=== PATIENT | male | born 1950 | race Caucasian/White ===

== ENCOUNTER 2016-08-23 05:28 | Inpatient (IN) | payer OTHER, MEDICARE ==
[2016-08-10 08:44] VITALS: BMI 33.0
--- NOTE | 2016-08-10 09:13 | PAT Medication Instructions ---
Service Date Aug 10, 2016. Current Home Medication List Diazepam (Valium), 2 MG PO UD PRN for prn Famotidine (Pepcid), 20 MG PO DAILY PRN for Indigestion Ibuprofen (Advil), 400-600 MG PO Q6H PRN for Pain Medication Instructions For Your Scheduled Surgery - Take the following medications the morning of surgery with a sip of water OTHERWISE NOTHING TO EAT OR DRINK AFTER MIDNIGHT: Diazepam (Valium), 2 MG PO DIRECTED (as needed) Famotidine (Pepcid), 20 MG PO DAILY DIRECTED (as needed) If you have any questions please call us at [phone] (Ila Wilkes PA-C ) or [phone] or [phone]
[2016-08-10 10:01] LABS: BASO % 0.3 %; BASO ABS # 0.02 K/uL (0-0.2); COMPLETE YES; HEMATOCRIT 46.7 % (42-52); IG% 0.3 %; LYMPH % 22.5 %; LYMPH ABS # 1.48 K/uL (1.2-3.4); MEAN CELL VOLUME 82.5 fL (80-100); MEAN CORPUSCULAR HEMOGLOBIN 28.1 pg (25-34); MEAN PLATELET VOLUME 10.5 fL (7.4-10.4); MONO % 7.4 %; NEUT % 67.5 %; PLATELET COUNT 191 K/uL (130-400); RED BLOOD COUNT 5.66 M/uL (4.7-6.1); WHITE BLOOD COUNT 6.59 K/uL (4.8-10.8)
[2016-08-10 10:11] LABS: PROTHROMBIN TIME (PATIENT) 10.3 SECONDS (9.0-12.0)
--- NOTE | 2016-08-10 10:21 | DIAGNOSTIC IMAGING REPORT ---
CHEST PREADMISSION(PA/LAT) CLINICAL HISTORY: Preoperative chest COMPARISON STUDY: 09/02/2012 FINDINGS: The cardiac and mediastinal contours are normal. There is no evidence of focal pulmonary consolidation. There is no evidence of failure. No pleural effusions are visualized.[ A triangular opacity in the right infrahilar region is felt to reflect a summation. IMPRESSION: No active disease in the chest. Electronically signed by: Rokc Salinas M.D. 08/10/2016 10:20 AM Dictated Date/Time: 08/10/2016 10:19 AM
[2016-08-10 10:30] LABS: BUN/CREATININE RATIO 15.9 (10-20); CALCIUM 9.4 mg/dl (8.5-10.1); CREATININE 1.1 mg/dl (0.60-1.40); POTASSIUM 4.8 mmol/L (3.5-5.1)
[2016-08-20 16:30] VITALS: BMI 33.0
--- NOTE | 2016-08-22 12:48 | HISTORY & PHYSICAL EXAMINATION ---
DATE OF ADMISSION: 08/23/2016 SUBJECTIVE CHIEF COMPLAINT: He complains of excruciating back pain. He also has some lower extremity difficulties centered in the lumbar spine approximately 3 inches lower than the iliac crest bilaterally, dominating on the left hand side. He does have a history of spine surgery in the past. He has had a prior PLIF procedure with implants from the L3-5 lumbar levels. He continues to have left hand side pain. He is minimally functional at this point. He has no red flags, fever, sweats, or chills. No bowel or bladder incontinence. He is in pretty significant pain with a radicular component and poor function. MEDICAL HISTORY: All negative. PRIOR SURGICAL HISTORY: Includes a PLIF procedure to his lumbar spine, knee surgery. ALLERGIES: No allergies to medications. CURRENT MEDICATIONS: List includes Advil and valium. FAMILY MEDICAL HISTORY: Positive for heart disease, stroke and diabetes. Negative for blood clots, DVTs or cancer. SOCIAL HISTORY: He is . Never drinks. No tobacco use. Little activity. REVIEW OF SYSTEMS: NEUROLOGIC: Positive for vertigo and numbness in his back. MUSCULOSKELETAL: Examination is positive for joint pain, stiffness, weakness and muscle pain. PHYSICAL EXAMINATION: CONSTITUTIONAL: Alert and oriented x3. VITAL SIGNS: He is 5 foot 10, 228 pounds. CARDIOVASCULAR: Brisk capillary refill in distal extremities. Normal S1, S2. No S3 noted. RESPIRATORY: Equal and bilateral breath sounds upon auscultation. No rales, rhonchi or wheezing. GASTROINTESTINAL: Abdomen is soft, nontender. No organomegaly was noted upon percussion. INTEGUMENTARY: No skin rashes, no lesions, swelling, ecchymosis. MUSCULOSKELETAL: Examination of his back, he does have pain with forward flexion and extension of the lumbar spine level. Pain with percussion as well. Skin is intact. No signs of any zoster infections. No adenopathy. He does walk with a limp. He is slightly bent over in kyphosis. X-rays taken in the office do demonstrate a pretty degenerative segment at L5-S1 favoring the left hand side. Also shows a facet joint hypertrophy and nerve root impingement at that side as well. No gross instability. There are also some mild degenerative changes above the implants at the L2-3 level. ASSESSMENT AND DIAGNOSES: Stenosis and instability at L5-S1. PLAN: We have discussed surgery. We are to go through and we did offer him decompression at L5-S1. We are going to remove the old implants from 3 to 5. We will give him a decompression, possible interbody fusion at L5-S1. We will assess him for instability intraoperatively to determine if instrumentation is needed. We discussed the surgery outcomes with risks and benefits with Lucas. He is on board. We did provide him with a back brace for postop. We did provide him with pain medication as well. We anticipate him being an inpatient for 2-3 days max at [facility].
[2016-08-23] VITALS (10 sets, daily range): BP systolic 99–169; BP diastolic 60–104; PULSE 56–99; TEMP 36.3–36.8; O2SAT 92–97; Ht 177.8 cm; Wt 105.1 kg
[~2016-08-23] VITALS: Ht 177.8 cm; Wt 105.1 kg
[~2016-08-23 05:28] MED LIST: CEFAZOLIN 2000 MG/60 ML D5W 60 ML IV SCH; DIAZ2TAB PO; FAMO20TA11 PO; IBUP-1050 PO; LACTATED RINGER'S 1000ML 1,000 ML IV SCH; NSS 1000ML IV SCH; SCOPOLAMINE 1.5 MG TDSY TD SCH
[2016-08-23] MEDS ORDERED: CEFAZOLIN 2000 MG/60 ML D5W IV SCH (06:00)
[2016-08-23] MEDS ORDERED: SCOPOLAMINE 1.5 MG TDSY TD SCH (06:00)
[2016-08-23] MEDS ORDERED: LACTATED RINGER'S 1000ML 1,000 ML IV SCH (06:15)
[2016-08-23] MEDS ORDERED: ONDANSETRON INJ 2 MG/ML 2 ML VIAL ONE ×3 (06:37→10:45)
[2016-08-23] MEDS ORDERED: LIDOCAINE HCL 2% 2 ML VIAL (20MG/ML) ONE (06:37)
[2016-08-23] MEDS ORDERED: ROCURONIUM BROMIDE 10 MG/ML 5 ML VIAL ONE ×2 (06:37→08:13)
[2016-08-23] MEDS ORDERED: DEXAMETHASONE SOD INJ 4 MG/ML VIAL ONE (06:37)
[2016-08-23] MEDS ORDERED: PROPOFOL IV EMULSION 10 MG/ML 20 ML VIAL IV ONE (06:37)
[2016-08-23] MEDS ORDERED: MIDAZOLAM HCL 1 MG/ML 2ML VIAL ONE (06:38)
[2016-08-23] MEDS ORDERED: FENTANYL CITRATE INJ 50 MCG/1 ML 2 ML VIAL ONE ×2 (06:38→10:00)
[2016-08-23] MEDS ORDERED: THROMBIN FOR SOLN 20000 UNIT KIT ONE (06:39)
[2016-08-23] MEDS ORDERED: BUPIVACAINE/EPINEPHRINE 0.5% MPF 1:200,000 30 ML VIAL ONE ×2 (06:39→06:40)
[2016-08-23] MEDS ORDERED: GELATIN SPONGE SZ 100 ONE ×2 (06:39→08:35)
[2016-08-23] MEDS ORDERED: BACITRACIN 50000 UNIT VIAL ONE (06:40)
[2016-08-23] MEDS ORDERED: VANCOMYCIN HCL 1000MG/20ML VIAL ONE (06:40)
[2016-08-23] MEDS ORDERED: LACTATED RINGER'S 1000ML 1,000 ML IV PRN (07:06)
[2016-08-23] MEDS ORDERED: DiphenhydrAMINE HCL 50 MG/ML VIAL IV PRN (07:15)
[2016-08-23] MEDS ORDERED: FENTANYL CITRATE INJ 50 MCG/1 ML 2 ML VIAL IV PRN (07:15)
[2016-08-23] MEDS ORDERED: HYDROmorphone INJ 1 MG/ML SYR IV PRN (07:15)
[2016-08-23] MEDS ORDERED: ONDANSETRON INJ 2 MG/ML 2 ML VIAL IV PRN ×2 (07:15→11:30)
--- NOTE | 2016-08-23 07:33 | History & Physical Bridge Note ---
H&P Re-Evaluation Bridge Note: I have examined the patient, reviewed the History & Physical and in the interval since the performance of the History & Physical I have noted the following changes of clinical significance: No changes noted
[2016-08-23] MEDS ORDERED: DiphenhydrAMINE HCL 50 MG/ML VIAL ONE (07:37)
[2016-08-23] MEDS ORDERED: METOCLOPRAMIDE HCL INJ 5 MG/ML 2 ML VIAL ONE (07:37)
[2016-08-23] MEDS ORDERED: HYDROmorphone INJ 2 MG/ML SYR/VIAL ONE ×2 (08:06→12:11)
[2016-08-23] MEDS ORDERED: EpHEDrine SULFATE 50MG/5ML SYR ONE (08:26)
[2016-08-23] MEDS ORDERED: GLYCOPYRROLATE INJ 0.2 MG/ML VIAL ONE (10:10)
[2016-08-23] MEDS ORDERED: NEOSTIGMINE METHYLSULFATE 5 MG/5 ML SYR ONE (10:10)
--- NOTE | 2016-08-23 11:09 | DIAGNOSTIC IMAGING REPORT ---
LUMBAR SPINE, INTRAOPERATIVE FLUOROSCOPY HISTORY: Laminectomy. FLUOROSCOPY TIME: 6 seconds. FINDINGS: Intraoperative fluoroscopy was provided for the lumbar spine. 3 fluoroscopic spot images were obtained. IMPRESSION: Fluoroscopy provided for a lumbar laminectomy and hardware revision. Electronically signed by: Brandon Benoit M.D. 08/23/2016 11:08 AM Dictated Date/Time: 08/23/2016 11:07 AM
[2016-08-23] MEDS ORDERED: SODIUM CHLORIDE 0.9% 1000ML 1,000 ML IV SCH (11:19)
--- NOTE | 2016-08-23 11:22 | [facility] Post Operative Brief Note ---
Immediate Operative Summary Operative Date Aug 23, 2016. Pre-Operative Diagnosis Lumbar Spinal Stenosis Post-Operative Diagnosis Lumbar Spinal Stenosis Procedure(s) Performed L3-L5 Removal of Implants, Decompression, L5-S1 instrumentation in addition to L2 Globus transition Surgeon Dr. Novoa Shellfish Processing Laborer Surgeon(s) MATT Marcial Estimated Blood Loss 300ml Findings stenosis and instability Specimens A) removed hardware - 6 screws, 6 connectors, 2 rods and 6 caps with no evidence of failure per surgeon. Not to be sent to laboratory. May be returned to patient per surgeon. Complication(s) None Disposition Recovery Room / PACU
[2016-08-23] MEDS ORDERED: DURASEAL DURAL SEALANT 5ML TOP ONE (11:23)
--- NOTE | 2016-08-23 11:25 | [facility] Post Operative Brief Note ---
Immediate Operative Summary Operative Date Aug 23, 2016. Pre-Operative Diagnosis Lumbar Spinal Stenosis Post-Operative Diagnosis Lumbar Spinal Stenosis Procedure(s) Performed L3-L5 Removal of Implants, Decompression, L5-S1 instrumentation in addition to L2 Globus transition Surgeon Dr. Novoa Analog Device Designer Surgeon(s) MATT Marcial Estimated Blood Loss 300ml Specimens A) removed hardware - 6 screws, 6 connectors, 2 rods and 6 caps with no evidence of failure per surgeon. Not to be sent to laboratory. May be returned to patient per surgeon.
[2016-08-23] MEDS ORDERED: LORAZEPAM 1 MG TAB PO PRN (11:30)
[2016-08-23] MEDS ORDERED: HYDROmorphone HCL 0.5MG/ML 50 ML CASSETTE IV PRN (11:30)
[2016-08-23] MEDS ORDERED: MAGNESIUM HYDROXIDE SUSP 30 ML UDC PO PRN (11:30)
[2016-08-23] MEDS ORDERED: LORAZEPAM INJ 1 MG in SYRINGE 0.5 ML IV PRN (11:30)
[2016-08-23] MEDS ORDERED: PROMETHAZINE HCL INJ 12.5 MG in SODIUM CHLORIDE 0.9% 50ML 50 ML IV PRN (11:30)
[2016-08-23] MEDS ORDERED: METOCLOPRAMIDE HCL INJ 5 MG/ML 2 ML VIAL IV PRN (11:30)
[2016-08-23] MEDS ORDERED: ACETAMINOPHEN 325 MG TAB PO PRN (11:30)
[2016-08-23] MEDS ORDERED: FAMOTIDINE 20 MG TAB PO PRN (11:30)
[2016-08-23] MEDS ORDERED: HYDROmorphone HCL 0.5MG/ML 50 ML CASSETTE ONE (11:30)
[2016-08-23] MEDS ORDERED: NALOXONE HCL 0.4 MG/1 ML VIAL/CARP IV PRN (11:30)
[2016-08-23] MEDS: SODIUM CHLORIDE 0.9% 1000ML 1,000 ML IV SCH ×2 (12:30→23:45)
[2016-08-23] MEDS: DEXAMETHASONE INJ 10 MG in SYRINGE 0 ML IV SCH ×2 (13:46→21:39)
--- NOTE | 2016-08-23 14:13 | Anesthesiology Progress Note ---
Anesthesia Post Op Note Date & Time Aug 23, 2016 at 14:13 Vital Signs Pain Intensity: 5.0 Vital Signs Past 12 Hours Date Time Temp Pulse Resp B/P Pulse Ox O2 Delivery O2 Flow Rate FiO2 08/23/16 13:52 88 149/91 96 08/23/16 13:10 88 18 118/85 96 08/23/16 12:30 36.7 85 14 162/96 94 Nasal Cannula 4.0 08/23/16 12:30 94 Nasal Cannula 4.0 08/23/16 12:30 Nasal Cannula 08/23/16 12:20 36.4 78 14 151/91 94 Nasal Cannula 4 08/23/16 12:10 87 18 157/93 98 Nasal Cannula 4 08/23/16 12:00 87 20 158/99 97 Nasal Cannula 4 08/23/16 11:50 80 12 157/93 100 Mask 10 08/23/16 11:40 79 17 151/90 98 Mask 10 08/23/16 11:30 81 18 148/88 96 Mask 10 08/23/16 11:22 36.2 81 18 154/90 98 Mask 10 08/23/16 06:09 36.6 70 18 145/91 97 Room Air Notes Mental Status: alert / awake / arousable, participated in evaluation Pt Amnestic to Procedure: Yes Nausea / Vomiting: adequately controlled Pain: adequately controlled Airway Patency, RR, SpO2: stable & adequate BP & HR: stable & adequate Hydration State: stable & adequate Anesthetic Complications: no major complications apparent Pt did well.
--- NOTE | 2016-08-23 14:28 | OPERATIVE REPORT ---
DATE OF OPERATION: 08/23/2016 PREOPERATIVE DIAGNOSES: Instability L2-L3 lumbar spine, instability and stenosis L5-S1 lumbar spine, prior implants and fusion, lumbar spine. POSTOPERATIVE DIAGNOSES: Same. PROCEDURES: 1. Include a posterior approach to the lumbar spine, decompression and instrumentation, L2-L3 lumbar spine with a Globus transition system, motion preserving technology, no fusion, but a pedicle screw instrumentation unisegment at L2-L3. 2. Decompression laminectomy, revision of the L5 and S1 laminas. Foraminotomy, partial facetectomy and 2-level decompression procedure. 3. Pedicle screw instrumentation, L5-S1. 4. Posterior complete diskectomy L5-S1. 5. A posterior lumbar interbody fusion L5-S1 with a spinal implant called a cage pack with autograft. 6. Removal of posterior prior instrumentation and removal of pedicle screws at L3, L4 and L5. SURGEON: Dr. Cal Novoa. BAGGAGE PORTER HEAD: Ernst Fernandez PA-C COMPLICATIONS: Zero. BLOOD LOSS: 300 mL. DESCRIPTION OF PROCEDURE: The patient was taken to the operating room and general intubated anesthetic provided to the patient. Mistry catheter administered as well. Antibiotics administered. He was placed on the Raghavendra table, scrubbed, shaved, prepped and draped sterile. We used basically his old skin incision and fascial incision. We dissected out over the old spinal implants. It was a device called Medicrea. The implants were removed. We took off bone backed out all, the pedicle screws backed out and took out the instrumented manfred. I was pleased with that phase of procedure. We then went down to his real pathology. The real pathology was down at L5-S1. We were able to use revision strategies and get above the dura, underneath the lamina and do a good decompression of the nerve roots, which will be at L5 and S1, two-level decompression procedure at this level. We then were safely able to get the pedicle screw of sacrum and pedicle screw of L5. We went with a heavier stronger screw that was prior placed. We then carefully retracted the dura over in the medial direction from the left hand side exposing the disk. When incised the disk, with pituitary rongeurs, we evacuated the disk and did a complete diskectomy at L5-S1. We then used scot. We shaved up to a size 10 instrumentation at L5-S1. We then selected the implant, a cage pack with autograft placed in the vacated diskectomy site. It measured 10 x 10 x 32 mm. We then locked down the construct, restoring lordosis and restoring axial height. We then irrigated thoroughly with about 1000 mL of fluid. We bone grafted out over the transverse process of L5 into the sacral. We completed at 360 fusion. We closed over Hemovac drain. The closed over vancomycin powder, #1 Vicryl, 2-0 and 3-0 on the skin. This was nylon suture. Sterile dressings applied. The patient returned to PACU in improved and stable. No apparent interoperative complications. Sponge and needle count correct at the close of the procedure. The implants used were by the [facility]. I attest to the content of the Intraoperative Record and any orders documented therein. Any exceptio ns are noted below.
[2016-08-23] MEDS: HYDROmorphone HCL 0.5MG/ML 50 ML CASSETTE IV PRN ×2 (14:58→22:57)
[2016-08-23] MEDS: CEFAZOLIN IV 2,000 MG in DEXTROSE 5% 50ML 50 ML IV SCH ×2 (15:47→23:50)
[2016-08-23] MEDS ORDERED: KETOROLAC TROMETHAMINE 30 MG/ML VIAL IV SCH (16:00)
[2016-08-23] MEDS: KETOROLAC TROMETHAMINE 30 MG/ML VIAL IV. SCH ×2 (17:16→21:39)
[2016-08-23] MEDS ORDERED: COUGH DROP (SUGAR FREE) LOZ 24 LOZ/1 BOX PO PRN (20:30)
[2016-08-23] MEDS ORDERED: NURSING DECISION MEDICATION ORDER SCH (20:30)
[2016-08-24 03:54] VITALS: BP 104/55; PULSE 81; TEMP 36.5; O2SAT 91
[2016-08-24] MEDS: KETOROLAC TROMETHAMINE 30 MG/ML VIAL IV. SCH ×3 (04:21→15:56)
[2016-08-24] MEDS ORDERED: NURSING VERBAL MED ORDER ONE (04:30)
[2016-08-24] MEDS ORDERED: BISACODYL 10 MG SUPP PR PRN (06:00)
[2016-08-24] MEDS ORDERED: DC PCA ONE ×2 (06:00→08:00)
[2016-08-24] MEDS ORDERED: BISACODYL 5 MG TABEC PO PRN (06:00)
[2016-08-24] MEDS: DEXAMETHASONE INJ 10 MG in SYRINGE 0 ML IV SCH ×3 (06:27→21:31)
[2016-08-24 07:04] VITALS: BP 110/65; PULSE 73; TEMP 36.5; O2SAT 91
[2016-08-24] MEDS: CEFAZOLIN IV 2,000 MG in DEXTROSE 5% 50ML 50 ML IV SCH (07:52)
--- NOTE | 2016-08-24 07:54 | PROGRESS NOTE ---
DATE: 08/24/2016 SUBJECTIVE: Moderate complaints of pain. Minimal lower extremity difficulty. Alert, oriented. No chest pain, shortness of breath. OBJECTIVE: Vital signs stable. Hemoglobin 15.9. ASSESSMENT: Status post revision lumbar spine surgery. DISPOSITION: Will get him up slowly and ambulate today. I only want him walking about 40-50 feet. Careful with bending, stooping, lifting. Will get rid of his Mistry catheter. Tentative discharge home tomorrow, which will be Saturday. I did put an order in for [facility]; if he feels he is a good candidate that would be also appropriate.
[2016-08-24] MEDS ORDERED: HYDROmorphone INJ 2 MG/ML SYR/VIAL IV PRN (08:00)
[2016-08-24] MEDS ORDERED: HYDROmorphone INJ 1 MG/ML SYR IV PRN (08:00)
[2016-08-24] MEDS ORDERED: OXYCODONE/ACETAMINOPHEN 5-325 TAB PO PRN ×2 (08:00)
[2016-08-24] MEDS: POLYETHYLENE (MIRALAX) 17 GM PACK PO SCH (09:14)
[2016-08-24 11:49] VITALS: BP 111/65; PULSE 73; TEMP 36.7; O2SAT 92
[2016-08-24 16:03] VITALS: BP 112/67; PULSE 73; TEMP 36.8; O2SAT 94
[2016-08-24 19:59] VITALS: BP 116/61; PULSE 70; TEMP 36.8; O2SAT 94
[2016-08-24 23:20] VITALS: BP 110/66; PULSE 70; TEMP 36.4; O2SAT 93
[2016-08-25 06:02] VITALS: BP 123/72; PULSE 69; TEMP 36.4; O2SAT 96
[2016-08-25] MEDS: POLYETHYLENE (MIRALAX) 17 GM PACK PO SCH (07:36)
--- NOTE | 2016-08-25 09:47 | Discharge Instructions ---
Discharge Instructions Admission Reason for Admission: Spinal Stenosis Discharge Discharge Diagnosis / Problem: stenosis Discharge Goals Goal(s): Improve function Activity Recommendations Activity Limitations: as noted below Lifting Limitations: until after follow-up appointment Exercise/Sports Limitations: until after follow-up appointment May Resume Sexual Activity: after follow-up appointment Shower/Bathe: keep incision dry Driving or Machine Use: . Current Hospital Diet Patient's current hospital diet: Regular Diet Discharge Diet Recommended Diet: Regular Diet Fluid Restriction: None Procedures Procedures Performed: L3-L5 Removal of Implants, Decompression, L5-S1 instrumentation in addition to L2 Globus transition Pending Studies Studies pending at discharge: no Medical Emergencies . Who to Call and When: Medical Emergencies: If at any time you feel your situation is an emergency, please call 911 immediately. . Non-Emergent Contact Non-Emergency issues call your: Surgeon Call Non-Emergent contact if: you have any medication questions . "Provider Documentation" section prepared by Cal Novoa. VTE Core Measure Inpt VTE Proph given/why not?: Treatment not indicated
[2016-08-25 10:29] VITALS: BP 123/72; PULSE 69; TEMP 36.4; O2SAT 96
--- NOTE | 2016-08-25 10:58 | DISCHARGE SUMMARY ---
SUBJECTIVE: Mild complaints of pain, no sciatica. No shortness of breath or chest pain. OBJECTIVE: Vital signs stable. 46.7 hematocrit. Afebrile. Wound perfect. ASSESSMENT: Status post revision lumbar spine surgery, doing well short run. DISPOSITION: Includes instructions, precautions, education. Discharged home today. He has instructions and precautions at home. He has a walker at home. He has medication on his chart. He is to be careful with bending, stooping, lifting, and we will see him back in the office in 10 days.
== END 2016-08-25 12:05 | disposition home or self-care (01) | DRG 460 ==
LOC: ENRESERVDT → ENRESERVTM → C.ACU 05:28 → C.3E 07:00
PROVIDERS: ADMIT Orthopaedic Surgery Orthopaedic Surgery of the Spine; ATTEND Orthopaedic Surgery Orthopaedic Surgery of the Spine
PROC: 0SP004Z Removal of Internal Fixation Device from Lumbar Vertebral Joint, Open Approach (ICD-10-PCS; principal; 2016-08-23 07:30)
PROC: 01NA0ZZ Release Lumbosacral Plexus, Open Approach (ICD-10-PCS; principal; 2016-08-23 07:30)
PROC: 0ST40ZZ Resection of Lumbosacral Disc, Open Approach (ICD-10-PCS; principal; 2016-08-23 07:30)
PROC: 0SG30AJ Fusion of Lumbosacral Joint with Interbody Fusion Device, Posterior Approach, Anterior Column, Open Approach (ICD-10-PCS; principal; 2016-08-23 07:30)
DX: M48.07 Spinal stenosis, lumbosacral region (principal); M53.2X7 Spinal instabilities, lumbosacral region; M53.2X6 Spinal instabilities, lumbar region; Z98.1 Arthrodesis status; Z82.49 Family history of ischemic heart disease and other diseases of the circulatory system; Z82.3 Family history of stroke; Z83.3 Family history of diabetes mellitus